=== PATIENT | female | born 1965 | race Caucasian/White ===

== ENCOUNTER → 2016-10-09 | Outpatient (CLI) | payer BC ==
--- NOTE | 2016-10-09 10:37 | REP ---
Digital screening bilateral mammography with CAD: Comparison bilateral mammography is reviewed from October 09, 2015, October 06, 2014, October 14, 2013, and January 30, 2012. Findings: There is a possible area of spiculation in the right breast on the CC view posteriorly behind the nipple on today's mammography which merits further evaluation. This is not clearly visualized on the MLO view. It may be a superimposition shadow. Moderate scattered fibroglandular densities are seen bilaterally, otherwise stable as before. No microcalcification is seen. No worrisome skin change is seen. Impression: BIRADS category 0 incomplete breast imaging. Possible spiculated density posterior third right mid breast on the CC view only. Diagnostic right breast mammography and right breast focused sonography recommended. BI-RADS/ACR category 0 mammogram. Incomplete: Additional imaging and/or prior images are needed before a final assessment can be assigned. This mammogram was interpreted with the aid of an FDA-approved computer-aided detection system. The patient states she had a clinical breast exam in September 2016 The patient letter being requested is M0.
== END ==
LOC: M WHC 09:46
PROVIDERS: ATTEND Nurse Practitioner Women's Health
DX: Z12.31 Encounter for screening mammogram for malignant neoplasm of breast (principal); R92.8 Other abnormal and inconclusive findings on diagnostic imaging of breast

== ENCOUNTER → 2016-10-09 | Outpatient (REF) | payer BC | LOC: M SFHCWAGY 09:30 | PROVIDERS: ATTEND Nurse Practitioner Women's Health | DX: Z12.4 Encounter for screening for malignant neoplasm of cervix (principal) ==

== ENCOUNTER → 2016-10-15 | Outpatient (CLI) | payer BC ==
--- NOTE | 2016-10-15 11:12 | REP ---
DIAGNOSTIC MAMMOGRAM RIGHT BREAST: Diagnostic mammogram right breast performed with multiple spot compression views obtained. Correlation made with recent mammogram of 10/09/2016 which showed a possible spiculated density in the right breast, only seen on the CC view. Today's spot compression views show that this density compresses out to an unchanged appearance compared to multiple other prior exams including 10/06/2014. There is no persistent nodule or architectural distortion. The findings are benign. IMPRESSION: ACR 2 benign. No persistent architectural distortion or spiculation or nodule in the right breast on today's spot compression views. Appearance of the fibroglandular tissue is unchanged since multiple prior exams. Recommend followup mammogram in 1 year. BI-RADS/ACR category 2 mammogram. Benign finding(s). Routine annual screening mammography (for women over age 40). This mammogram was interpreted with the aid of an FDA-approved computer-aided detection system. A. Negative x-ray reports should not delay biopsy if a dominant or clinically suspicious mass is present. B. Four to eight percent of cancers are not identified by x-ray. C. Adenosis and dense breasts may obscure an underlying neoplasm. The patient letter being requested is M1. Signed by Addison Jolly MD 10/15/2016 03:29 P
== END ==
LOC: M RAD 09:38
PROVIDERS: ATTEND Nurse Practitioner Women's Health
DX: R92.8 Other abnormal and inconclusive findings on diagnostic imaging of breast (principal)

== ENCOUNTER → 2017-12-17 | Outpatient (CLI) | payer BC | LOC: M WHC 09:21 | DX: Z12.31 Encounter for screening mammogram for malignant neoplasm of breast (principal) | CPT/HCPCS: 77067 ==

== ENCOUNTER → 2019-03-10 | Outpatient (CLI) | payer BC ==
--- NOTE | 2019-03-10 11:10 | REPMRS ---
Patient History The patient states she had a clinical breast exam in 2018. Family history of breast cancer at age 50 or over in paternal grandmother. Digital Woman Screen Mammo: March 10, 2019 - Exam #: [id number] Bilateral CC and MLO view(s) were taken. Technologist: Nikki Castro, Technologist Prior study comparison: December 17, 2017, bilateral digital woman screen mammo performed at [facility]. October 09, 2016, digital woman screen mammo performed at [facility]. October 09, 2015, digital woman screen mammo performed at [facility]. FINDINGS: The breast tissue is heterogeneously dense. This may lower the sensitivity of mammography. There is a moderate amount of heterogeneously dense fibroglandular tissue which is fairly symmetric. There is no interval development of dominant mass, architectural distortion, or grouped microcalcification typical of malignancy. There has been no change in the appearance of the mammogram from the prior studies. 3-D tomosynthesis shows no additional findings. Assessment: BI-RADS/ACR category 1 mammogram. Negative Mammogram. Recommendation Routine screening mammogram of both breasts in 1 year (for women over age 40). This patient's Lifetime Breast Cancer RIsk is estimated at 11.7 %. This mammogram was interpreted with the aid of an FDA-approved computer-aided dectection system. Electronically Signed By: Simeon Aly MD 03/10/19 [id number]
== END ==
LOC: M WHC 08:35
PROVIDERS: ATTEND Nurse Practitioner Women's Health
DX: Z12.31 Encounter for screening mammogram for malignant neoplasm of breast (principal)

== ENCOUNTER → 2019-03-10 | Outpatient (REF) | payer BC | LOC: M PLALAB 09:22 | PROVIDERS: ATTEND Nurse Practitioner Women's Health | DX: Z53.9 Procedure and treatment not carried out, unspecified reason (principal) ==

== ENCOUNTER → 2020-02-22 | Outpatient (CLI) | payer BC ==
--- NOTE | 2020-02-22 13:42 | REP ---
INDICATION: N63.20 LEFT BREAST LUMP/R22.2 AXILLARY FULLNESS; AXILLA L FULLNESS/LUMP/LEFT/N63.20/R22.2; N63.20/LEFT BREAST LUMP/R22.2 AXILLARY LEFT FULLNESS. COMPARISON: Mammography March 10, 2019 and December 17, 2017. TECHNIQUE: Bilateral CC and MLO) view(s) were taken. A skin marker is affixed to the skin at the site of the palpable lump on the left. Magnified focal spot-compression craniocaudal, mediolateral oblique, and true mediolateral views are obtained. 3D tomography is carried. Targeted left breast and left axillary ultrasound. FINDINGS: Scattered fibroglandular elements are seen bilaterally. There is a somewhat asymmetric nodular density adjacent to the skin marker at the site of the palpable lump in the upper-outer quadrant of the left breast posterior 3rd. This appears slightly more prominent than on prior studies from 2018 in 2019. Possible developing density. Breast parenchymal markings are otherwise unchanged from the 2018 study bilaterally. No micro calcific grouping or new dominant density is seen. The Volpara volumetric breast density pattern is B. Sonographic findings in the left axilla: Left axillary sonography shows 2 identifiable normal appearing lymph nodes with very thin cortical margins and hyperechoic fat hilar architecture. These have a benign appearance. They measure 1.6 x 2.2 x 0.6 cm and 0.9 x 1.7 x 0.6 cm respectively. Sonographic findings left breast in the area of the palpable lump: Sonography of the level of the palpable lump at 2 o'clock, 8 cm from the nipple demonstrates a echogenic irregularly marginated 0.6 x 0.5 x 0.5 cm nodule. This does not meet criteria of a simple cyst. It contains an echogenic focus eccentrically positioned within it. This is felt to correspond with the mammographic opacity.. IMPRESSION: BIRADS/ACR category 4 suspicious mammographic and sonographic findings. This patient's Tyrer-Cuzick lifetime breast cancer risk assessment score is 11.4%. This mammogram was interpreted with the aid of an FDA-approved computer-aided detection system. The patient states she had a clinical breast exam in February of 2020. The patient letter being requested is M4. RECOMMENDATION: Ultrasound-guided needle biopsy left breast with marker clip placement and post clip placement unilateral left breast mammography recommended.. <Electronically signed by Simeon Aly > 02/22/20 [id number]
== END ==
LOC: M WHC 10:33
PROVIDERS: ATTEND Nurse Practitioner Family
DX: N63.20 Unspecified lump in the left breast, unspecified quadrant (principal); R22.2 Localized swelling, mass and lump, trunk
CPT/HCPCS: 76642; 76882; 77066; G0279

== ENCOUNTER → 2020-11-29 | Outpatient (CLI) | payer BC ==
[~2020-11-29] MED LIST: D31000TA2 PO
--- NOTE | 2020-11-29 16:28 | REP ---
INDICATION: PAIN. COMPARISON: None. TECHNIQUE: Two views bilateral hips. FINDINGS: There is no evidence of acute fracture, dislocation or intrinsic bone disease. Bilaterally, there is minor superior joint space narrowing and subchondral sclerosis. IMPRESSION: Minor symmetrical arthritic changes bilaterally. <Electronically signed by Addison Jolly > 11/29/20 [id number]
== END ==
LOC: M WUC 12:02
PROVIDERS: ATTEND Internal Medicine
DX: M16.0 Bilateral primary osteoarthritis of hip (principal)

== ENCOUNTER → 2020-12-01 | Outpatient (CLI) | payer BC | LOC: M LABSMTC 10:31 | PROVIDERS: ATTEND Anesthesiology | DX: Z01.812 Encounter for preprocedural laboratory examination (principal); Z20.822 Contact with and (suspected) exposure to COVID-19 ==

== ENCOUNTER 2020-12-06 06:54 | Day surgery (SDC) | payer BC ==
[~2020-12-06] VITALS: Ht 160 cm; Wt 68.0 kg
[~2020-12-06 06:54] MED LIST changes: +NS 1,000 ML IV ONE
[2020-12-06] MEDS ORDERED: propofoL 200 MG/20 ML VIAL As Ordered ONE (08:02)
--- NOTE | 2020-12-06 08:21 | ROOR ---
Patient Name: Trinity Pearson Procedure Date: 12/06/2020 7:57 AM Date of : 1965 Age: 55 Room: [facility] Gender: Female Note Status: Finalized Procedure: Colonoscopy Indications: Screening for colorectal malignant neoplasm Providers: DO Sidney Slater MD: JONATAN LENTZ MD Requesting Provider: Medicines: Propofol per Anesthesia Complications: No immediate complications. Procedure: Pre-Anesthesia Assessment: - Prior to the procedure, a History and Physical was performed, and patient medications and allergies were reviewed. The patient is competent. The risks and benefits of the procedure and the sedation options and risks were discussed with the patient. All questions were answered and informed consent was obtained. Patient identification and proposed procedure were verified by the physician, the nurse, the anesthesiologist and the veterinary surgery technician in the endoscopy suite. Mental Status Examination: alert and oriented. Airway Examination: normal oropharyngeal airway and neck mobility. Respiratory Examination: clear to auscultation. CV Examination: normal. Prophylactic Antibiotics: The patient does not require prophylactic antibiotics. Prior Anticoagulants: The patient has taken no previous anticoagulant or antiplatelet agents. ASA Grade Assessment: II - A patient with mild systemic disease. After reviewing the risks and benefits, the patient was deemed in satisfactory condition to undergo the procedure. The anesthesia plan was to use monitored anesthesia care (MAC). Immediately prior to administration of medications, the patient was re-assessed for adequacy to receive sedatives. The heart rate, respiratory rate, oxygen saturations, blood pressure, adequacy of pulmonary ventilation, and response to care were monitored throughout the procedure. The physical status of the patient was re-assessed after the procedure. The Colonoscope was introduced through the anus and advanced to the cecum, identified by appendiceal orifice and ileocecal valve. The colonoscopy was performed without difficulty. The patient tolerated the procedure well. Findings: Non-bleeding internal hemorrhoids were found during retroflexion. The hemorrhoids were mild and Grade I (internal hemorrhoids that do not prolapse). Impression: - Non-bleeding internal hemorrhoids. - No specimens collected. Recommendation: - Patient has a contact number available for emergencies. The signs and symptoms of potential delayed complications were discussed with the patient. Return to normal activities tomorrow. Written discharge instructions were provided to the patient. - Repeat colonoscopy in 5-10 years for screening purposes. - Return to my office PRN. Procedure Code(s): --- Professional --- G0121, Colorectal cancer screening; colonoscopy on individual not meeting criteria for high risk Diagnosis Code(s): --- Professional --- Z12.11, Encounter for screening for malignant neoplasm of colon K64.0, First degree hemorrhoids CPT copyright 2019 [employer]. All rights reserved. The codes documented in this report are preliminary and upon cardiopulmonary specialist review may be revised to meet current compliance requirements. Addison Uribe DO 12/06/2020 8:21:22 AM Electronically signed by Addison Uribe DO Number of Addenda: 0 Note Initiated On: 12/06/2020 7:57 AM Estimated Blood Loss: Estimated blood loss: none.
[2020-12-06 08:44] VITALS: BP 111/75
== END 2020-12-06 08:46 | disposition home or self-care (01) ==
LOC: M OPP 06:54
PROVIDERS: ATTEND Surgery
DX: Z12.11 Encounter for screening for malignant neoplasm of colon (principal); K64.0 First degree hemorrhoids; G43.909 Migraine, unspecified, not intractable, without status migrainosus; Z79.899 Other long term (current) drug therapy; Z86.19 Personal history of other infectious and parasitic diseases; Z87.442 Personal history of urinary calculi

== ENCOUNTER → 2022-03-01 | Outpatient (REF) | payer BC ==
[~2022-03-01] MED LIST changes: -D31000TA2 PO; -NS 1,000 ML IV ONE; +VITA100093 PO
== END ==
LOC: M PLALAB 13:24
PROVIDERS: ATTEND Nurse Practitioner Family
DX: Z12.4 Encounter for screening for malignant neoplasm of cervix (principal)
CPT/HCPCS: 87624; G0123

== ENCOUNTER 2022-07-28 15:05 | Emergency (ER) | payer BC ==
[~2022-07-28] VITALS: Ht 162.6 cm; Wt 65.3 kg
[2022-07-28] MEDS ORDERED: KETOROLAC 30 MG/ML 1ML VIAL IV ONE (15:55)
[2022-07-28] MEDS ORDERED: NS 1,000 ML IV ONE (15:55)
[2022-07-28] MEDS ORDERED: ONDANSETRON 4MG 2ML VIAL IV ONE (15:55)
[2022-07-28 15:56] LABS: BASO % 0.2 % (0.0-1.0); HEMATOCRIT 38.1 % (36.0-47.0); HEMOGLOBIN 12.6 g/dl (12.0-15.5); LYMPH # 0.6 10^3/uL (1.5-5.0); LYMPH % 6.2 % (24.0-44.0); MEAN CORPUSCULAR HEMOGLOBIN 30.3 pg (27.0-33.0); MEAN CORPUSCULAR HGB CONC 33.1 g/dl (32.0-36.5); MEAN CORPUSCULAR VOLUME 91.6 fl (80.0-96.0); MONO # 0.9 10^3/uL (0.0-0.8); MONO % 9.5 % (2.0-8.0); NEUTROPHILS % 83.7 % (36.0-66.0); PLATELET COUNT, AUTOMATED 163 10^3/uL (150-450); RED BLOOD COUNT 4.16 10^6/uL (4.00-5.40); WHITE BLOOD COUNT 9.6 10^3/uL (4.0-10.0)
[2022-07-28 16:18] LABS: ALBUMIN 4.1 G/DL (3.2-5.2); BILIRUBIN,DIRECT 0.4 MG/DL (<0.4); BILIRUBIN,TOTAL 1.3 MG/DL (0.3-1.2)
[2022-07-28] MEDS ORDERED: cefTRIAXone SOD 2 GM in D5W MINI-BAG PLUS 50 ML IV ONE (17:00)
[2022-07-28] MEDS ORDERED: CIPR250T26 PO (17:41)
[2022-07-28 17:53] VITALS: BP 111/69
[2022-07-30] MEDS ORDERED: CEFD300C PO (07:53)
== END 2022-07-28 17:54 | disposition home or self-care (01) ==
LOC: M ED 15:05
DX: N10 Acute pyelonephritis (principal); N28.1 Cyst of kidney, acquired
CPT/HCPCS: 36415; 74176; 80047; 80076; 81001; 83690; 85025; 87088; 87186; 96365; 96375; 99284; J0696; J1885; J2405

== ENCOUNTER → 2022-08-16 | Outpatient (CLI) | payer BC ==
[~2022-08-16] MED LIST changes: +CEFD300C PO; +CIPR250T26 PO
== END ==
LOC: M WUC 14:26
PROVIDERS: ATTEND Physician Assistant
DX: S60.011A Contusion of right thumb without damage to nail, initial encounter (principal); X58.XXXA Exposure to other specified factors, initial encounter; Y92.9 Unspecified place or not applicable; Y93.9 Activity, unspecified; Y99.9 Unspecified external cause status

== ENCOUNTER → 2023-10-16 | Outpatient (REF) | payer BC ==
[2023-10-18 11:20] LABS: HPV APTIMA Not Detected (Not Detected)
== END ==
LOC: M SFHCWAGY 13:11
PROVIDERS: ATTEND Nurse Practitioner Family
DX: Z12.4 Encounter for screening for malignant neoplasm of cervix (principal)
CPT/HCPCS: 87624; G0123